=== PATIENT | female | born 1980 | race Two or more races ===

== ENCOUNTER 2021-10-02 15:00 | Emergency (ER) | payer OTHER ==
[~2021-10-02] VITALS: Ht 165.1 cm; Wt 58.1 kg
[2021-10-02] MEDS ORDERED: IRON236 MG (15:11)
[2021-10-02] MEDS ORDERED: B12 ACTIVE1000 MCG (15:11)
[2021-10-02] MEDS ORDERED: FOLIC ACID20 MG (15:12)
== END 2021-10-02 17:28 | disposition home or self-care (01) ==
LOC: ER 15:00
DX: S00.81XA Abrasion of other part of head, initial encounter (principal); S50.312A Abrasion of left elbow, initial encounter; V00.841A Fall from standing electric scooter, initial encounter; Y93.I9 Activity, other involving external motion; Y92.9 Unspecified place or not applicable; Y99.9 Unspecified external cause status